=== PATIENT | female | born 2000 | race Caucasian/White ===

== ENCOUNTER 2024-03-26 21:40 | Emergency (ER) | payer BC, SELFPAY ==
[2024-03-26 22:19] LABS: Basophils Percent Auto 0.4 % (0.2-1.2); Eosinophils Absolute Auto 0.1 K/mm3 (0-0.3); Hematocrit 26.5 % (37.0-47.0); Hemoglobin 8.9 g/dL (12.0-15.0); Immature Granulocyte Absolute 0.07 K/mm3 (0.00-0.031); Lymphocytes Absolute Auto 2.77 K/mm3 (0.9-3.2); Lymphocytes Percent Auto 40.1 % (18.3-44.2); Mean Corpuscular HGB Conc 33.6 g/dl (32-36); Mean Corpuscular Hemoglobin 31.3 pg (26-34); Mean Corpuscular Volume 93.3 fl (80-100); Mean Platelet Volume 9.1 fl (7.4-10.4); Monocytes Absolute Auto 0.7 K/mm3 (0.1-0.6); Monocytes Percent Auto 9.7 % (2.6-8.5); Neutrophils Absolute Auto 3.2 K/mm3 (1.3-6.7); Neutrophils Percent Auto 46.8 % (45.5-73.1); Platelet Count Result 258 k/mm3 (150-375); Red Blood Count 2.84 M/mm3 (4.2-5.4); Red Cell Distribution Width 12.6 % (11.5-14.5); White Blood Count 6.9 K/mm3 (4.5-10.0)
[2024-03-26 22:29] LABS: Anion Gap 6 mmol/L (4-12); Blood Urea Nitrogen 20 mg/dL (7-17); Calcium 8.8 mg/dL (8.4-10.2); Carbon Dioxide 26 mmol/L (22-30); Chloride 103 mmol/L (98-107); Estimated CRCL calculation 106 ml/min; Estimated Glomerular Filt Rate > 60; Glucose 109 mg/dL (65-110); Potassium 3.9 mmol/L (3.4-5.0); Sodium 135 mmol/L (137-145)
[2024-03-26 22:38] LABS: Partial Thromboplastin Time 30.1 Seconds (22.3-36.8); Prothrombin Time 13.7 Seconds (11.1-14.7)
[2024-03-26 22:41] VITALS: BP 114/75; PULSE 79; RESP 14; O2SAT 100
--- NOTE | 2024-03-26 22:47 | PC.NURSE ---
pt has a hx of dvt from surgery in November. edp dr. flynn aware and able to perform a bedside ultrasound. pt states she uses crutches and is non weight bearing on the right leg due to increased pain. follow up with naheed next for follow up 04/01/24. pt states she received surgery at the [facility].
[2024-03-26 23:21] LABS: D Dimer 0.85 ug/mL (<0.48)
--- NOTE | 2024-03-27 00:08 | ED_ITS ---
HPI - Extremity Problem General Chief complaint: Extremity Problem,Nontraumatic Stated complaint: surgery recently; right calf pain; DVT? Time Seen by Provider: 03/26/24 22:24 History of Present Illness HPI Narrative: This is a 23-year-old female, with history of compartment syndrome status post fasciotomy (at the [facility]) and previous history of DVT, who presents emergency department complaining of right calf swelling with concern for DVT. The patient states in the past 4 days, she began physical therapy. She noticed right leg swelling and ecchymosis spreading down words towards the toes. She was advised by her PT staff to stop her Eliquis. However her swelling continued. She denies chest pain, shortness of breath, loss of consciousness though did had 1 episode of lightheadedness while showering 3 days ago that has not recurred. She has no other complaints at this time. Related Data Allergies Allergy/AdvReac Type Severity Reaction Status Date / Time No Known Allergies Allergy Verified 03/26/24 22:40 Review of Systems Review of Systems: All systems reviewed & are unremarkable except as noted in HPI and below PMFSH Past Medical History Medical History (Updated 03/27/24 @ 07:01 by Alden Lopez MD) History of DVT (deep vein thrombosis) Surgical History Surgical History (Updated 03/27/24 @ 07:01 by Alden Lopez MD) History of fasciotomy Social History Social History (Updated 03/27/24 @ 07:01 by Alden Lopez MD) Smoking status: Never smoker Alcohol intake: never Substance use: never Exam Narrative: GENERAL: Well-developed, well-nourished, and in no acute distress. HEAD: Normocephalic, atraumatic. EYES: PERRLA and EOMI. CHEST: Clear to auscultation. No respiratory distress. No wheezes rales or rhonchi HEART: Regular rate and rhythm. No murmur heard. Normal peripheral pulses. ABDOMEN: Soft, nontender, nondistended, normal active bowel sounds. EXTREMITIES: there is bilateral lower extremity swelling, greater on the right compared to the left. There are healing surgical incisions sides of the lateral and medial right foreleg, consistent with fasciotomy. There is no noted active bleeding, erythema or purulent drainage. There is diffuse ecchymosis noted of the right foreleg extending from the knee to the dorsum of the right foot, just proximal to the phalanges. Normal range of motion. No edema. SKIN: Warm, dry, no rash. NEURO: Alert and oriented x3. No focal deficit. Moving all 4 limbs spontaneously PSYCH: Normal mood and affect. Course Course Emergency Course: 00:00 - Bedside ultrasound by me is not concerning for DVT of the right lower extremity. CBC demonstrates anemia with hemoglobin of 8.9 with an unknown baseline. Chemistries demonstrate mild hyponatremia sodium of 135. INR 1. D- dimer elevated to 0.85. I advised the patient to restart her Eliquis and have ordered an outpatient ultrasound of the right lower extremity to rule out DVT. If this is negative I advised the patient to discuss the findings with her primary care doctor and hold her Eliquis. It is possible that the patient's swelling is related to small amounts of bleeding after surgery. the patient's exam however is not concerning for active hemorrhage or expanding hematoma. I discussed the findings and recommendations with The patient. Discussed return and emergency precautions including signs/symptoms of ACS and respiratory distress. The patient voiced understanding and agreement with the plan. All questions answered to her satisfaction. Vital Signs Vital signs: Vital Signs Pulse Rate 79 03/26/24 22:41 Respiratory Rate 14 03/26/24 22:41 Blood Pressure 114/75 03/26/24 22:41 Pulse Oximetry 100 03/26/24 22:41 Pulse Rate 79 03/27/24 00:20 Respiratory Rate 16 03/27/24 00:20 Blood Pressure 122/84 03/27/24 00:20 Pulse Oximetry 100 03/27/24 00:20 MDM - Extremity (Nontraumatic) MDM Narrative Medical decision making narrative: Plan: bedside ultrasound, labs, reassess Differential Diagnosis Differential diagnosis: Likely deep vein thrombosis of lower extremity and other ( hematoma, other) Lab Data 03/26/24 22:13 03/26/24 22:13 Labs: Lab Results 03/26/24 Range/Units 22:13 WBC 6.9 (4.5-10.0) K/mm3 RBC 2.84 L (4.2-5.4) M/mm3 Hgb 8.9 L (12.0-15.0) g/dL Hct 26.5 L (37.0-47.0) % MCV 93.3 (80-100) fl MCH 31.3 (26-34) pg MCHC 33.6 (32-36) g/dl RDW 12.6 (11.5-14.5) % Plt Count 258 (150-375) k/mm3 MPV 9.1 (7.4-10.4) fl Immature Gran % (Auto) 1.0 H (0-0.5) % Neut % (Auto) 46.8 (45.5-73.1) % Lymph % (Auto) 40.1 (18.3-44.2) % [place] % (Auto) 9.7 H (2.6-8.5) % Eos % (Auto) 2.0 (0-4.4) % Baso % (Auto) 0.4 (0.2-1.2) % Lymph # (Auto) 2.77 (0.9-3.2) K/mm3 [place] # (Auto) 0.7 H (0.1-0.6) K/mm3 Eos # (Auto) 0.1 (0-0.3) K/mm3 Baso # (Auto) 0.0 (0.0-0.1) K/mm3 Abs Immat Gran (auto) 0.07 H (0.00-0.031) K/mm3 Absolute Neuts (auto) 3.2 (1.3-6.7) K/mm3 Absolute Nucleated RBC 0.000 (0.0-0.012) K/mm3 Nucleated RBC % 0.0 (0.0-0.2) % PT 13.7 (11.1-14.7) Seconds INR 1.0 APTT 30.1 (22.3-36.8) Seconds D-Dimer 0.85 H (<0.48) ug/mL Sodium 135 L (137-145) mmol/L Potassium 3.9 (3.4-5.0) mmol/L Chloride 103 (98-107) mmol/L Carbon Dioxide 26 (22-30) mmol/L Anion Gap 6 (4-12) mmol/L BUN 20 H (7-17) mg/dL Creatinine 0.70 (0.7-1.0) mg/dL Estim Creat Clear Calc 106 ml/min Estimated GFR > 60 (59 - ) Glucose 109 (65-110) mg/dL Calcium 8.8 (8.4-10.2) mg/dL Discharge Plan Discharge Clinical Impression: Right leg swelling Anemia Qualifiers: Anemia type: unspecified type Qualified Code(s): D64.9 - Anemia, unspecified Superficial bruising of lower leg Qualifiers: Encounter type: initial encounter Laterality: right Qualified Code(s): S80.11XA - Contusion of right lower leg, initial encounter Patient Disposition: Home, Self-Care Condition: Stable Instructions: Antibiotic Form Additional Instructions: You were seen in the emergency department. Your labs show changes consistent with anemia but not concerning for liver or kidney injury. A lab a is elevated concerning for blood clot in the leg. I recommend restarting your Eliquis and having a repeat formal ultrasound of the leg. If this is negative. I recommend stopping your Eliquis and talking with your primary care doctor.. If you develop Chest pain, shortness of breath, loss of consciousness, bleeding elsewhere, or if you have other emergent concerns for life, limb, or eyesight, return to the emergency department. Patient Language: Z[place]ian Other Ambulatory Orders: US venous doppler LE RT (Routine) Timeframe: [id number] Location: Determined by Patient Ordered By: Alden Lopez Follow-up/Referrals: PHYSICIAN NOT ON STAFF,NONSTAFF [Primary Care Provider] - Time of Disposition: 00:06
[2024-03-27 00:20] VITALS: BP 122/84; PULSE 79; RESP 16; O2SAT 100
== END 2024-03-27 00:22 | disposition home or self-care (01) ==
PROVIDERS: Emergency Provider Preventive Medicine Aerospace Medicine
DX: R22.41 Localized swelling, mass and lump, right lower limb (principal); D64.9 Anemia, unspecified; S80.11XA Contusion of right lower leg, initial encounter; Z86.718 Personal history of other venous thrombosis and embolism; Z79.01 Long term (current) use of anticoagulants
CPT/HCPCS: 36415; 80048; 85025; 85380; 85610; 85730; 99283

== ENCOUNTER 2024-03-27 07:18 | Outpatient (CLI) | payer BC, SELFPAY ==
--- NOTE | ~2024-03-27 | US_ITS ---
EXAMINATION: US venous doppler LE RT DATE: 03/27/2024 07:54 INDICATION: Right lower limb pain and swelling. TECHNIQUE: Grayscale ultrasound images without and with compression and Doppler ultrasound images of the right lower extremity veins were obtained. COMPARISON: None. FINDINGS: The visualized portions of right common femoral vein, profunda (deep) femoral vein, femoral vein, pop liteal vein, peroneal veins, posterior tibial veins, and greater saphenous vein outflow are patent. T here is a 6.9 x 1.3 x 4.1 cm hypoechoic mass in the right calf, consistent with hematoma. IMPRESSION: 1. No deep venous thrombosis. 2. Right calf hematoma. Reviewed, dictated and finalized at location A. [employer]
== END 2024-03-27 07:19 | disposition home or self-care (01) ==
PROVIDERS: Visit Provider Preventive Medicine Aerospace Medicine
DX: S80.11XA Contusion of right lower leg, initial encounter (principal); X58.XXXA Exposure to other specified factors, initial encounter; M79.89 Other specified soft tissue disorders
CPT/HCPCS: 93971